=== PATIENT | female | born 1990 | race African-American/Black ===

== ENCOUNTER 2022-06-21 06:50 | Emergency (ER) | payer MEDICAID ==
[~2022-06-21] VITALS: Ht 160 cm; Wt 84.8 kg
[2022-06-21] MEDS ORDERED: PREDNISONE50 MG PO (07:53)
== END 2022-06-21 08:13 | disposition home or self-care (01) ==
LOC: ED 06:50
DX: J45.901 Unspecified asthma with (acute) exacerbation (principal)